=== PATIENT | female | born 1995 | race Caucasian/White ===

== ENCOUNTER 2017-07-02 10:31 | Emergency (ER) | payer OTHER ==
[2017-07-02] MEDS ORDERED: Zofran 4 MG/2 ML VIAL IV ONE (10:54)
[2017-07-02] MEDS ORDERED: Sodium Chloride 0.9% 1000 ML 1,000 ML IV STA (10:54)
[2017-07-02] MEDS ORDERED: Sodium Chloride 0.9% 1000 ML 1,000 ML ONE (10:59)
[2017-07-02] MEDS ORDERED: Zofran 4 MG/2 ML VIAL ONE (10:59)
--- NOTE | 2017-07-02 10:59 | ERPHSYRPT ---
- History of Present Illness Time Seen by Provider: 07/02/17 10:47 Historian: patient Exam Limitations: no limitations Patient Subjective Stated Complaint: Pt states "I have been vomiting for the past couple of nights, but it has gotten really bad since last night. I vomited so hard that now my stomach hurts." Triage Nursing Assessment: Pt alert and oriented X3, skin pwd Pt ambulates with an upright steady gait, able to speak in clear full sentences. Pt playing on her phone in waiting room. No apparent respiratory distress. Physician History: FOR THE PAST 10.5 HOURS PT HAS HAD VOMITING X12 WITHOUT BLOOD, DYSURIA AND A SORE THROAT; DENIES FEVER, RASH, COUGH. LAST BM WAS YESTERDAY & NOT DIARRHEAL. Allergies/Adverse Reactions: No Known Drug Allergies Allergy (Unverified 07/02/17 10:42) Hx Tetanus, Diphtheria Vaccination/Date Given: Yes Hx Influenza Vaccination/Date Given: No Hx Pneumococcal Vaccination/Date Given: No Immunizations Up to Date: Yes - Review of Systems Constitutional: No Fever Ears, Nose, & Throat: Throat Pain Respiratory: No Dyspnea Cardiac: No Chest Pain Abdominal/Gastrointestinal: Vomiting Genitourinary Symptoms: Dysuria All Other Systems: Reviewed and Negative - Past Medical History Pertinent Past Medical History: No - Past Surgical History Past Surgical History: Yes Other Surgical History: lizett - Social History Smoking Status: Former smoker Exposure to second hand smoke: No Drug Use: none Patient Lives Alone: No - Female History Hx Last Menstrual Period: 3 years Hx Now: No - Nursing Vital Signs Nursing Vital Signs: Initial Vital Signs Temperature 98.7 F 07/02/17 10:35 Pulse Rate 90 07/02/17 10:35 Respiratory Rate 16 07/02/17 10:35 Blood Pressure 133/90 07/02/17 10:35 O2 Sat by Pulse Oximetry 99 07/02/17 10:35 Pain Scale Pain Intensity 6 - Physical Exam General Appearance: alert Eye Exam: PERRL/EOMI Ears, Nose, Throat Exam: TMs normal, dry mucous membranes Neck Exam: normal inspection Respiratory Exam: lungs clear Cardiovascular Exam: normal heart sounds Gastrointestinal/Abdomen Exam: soft, other (B.S. MILDLY HYPERACTIVE AND NORMOTONIC) Back Exam: normal range of motion Extremity Exam: normal inspection Neurologic Exam: alert, cooperative Skin Exam: warm, dry SpO2 Interpretation: normal SpO2: 99 Oxygen Delivery: Room Air - Course Nursing assessment & vital signs reviewed: Yes Ordered Tests: Active Orders 24 hr Category Date Time Status IV Insertion STAT Care 07/02/17 10:54 Active AMYLASE Stat Lab 07/02/17 11:10 Completed CBC W DIFF Stat Lab 07/02/17 11:10 Completed CMP Stat Lab 07/02/17 11:10 Completed CULTURE,URINE Stat Lab 07/02/17 11:10 Received HCG QUALITATIVE,SERUM Stat Lab 07/02/17 11:10 Completed LIPASE Stat Lab 07/02/17 11:10 Completed MAGNESIUM Stat Lab 07/02/17 11:10 Completed UA W/ MICROSCOPIC Stat Lab 07/02/17 11:10 Completed Medication Summary Generic Name Dose Route Start Last Admin Trade Name Freq PRN Reason Stop Dose Admin Ceftriaxone Sodium/Dextrose 1 g in 50 mls @ 100 mls/hr 07/02/17 11:58 Rocephin 1 Gm-D5w 50 Ml Bag IV 07/02/17 12:27 STAT STA Discontinued Medications Generic Name Dose Route Start Last Admin Trade Name Freq PRN Reason Stop Dose Admin Sodium Chloride 1,000 mls @ 999 mls/hr 07/02/17 10:54 07/02/17 11:10 Sodium Chloride 0.9% 1000 Ml IV 07/02/17 11:54 999 mls/hr .Q1H1M STA Administration Sodium Chloride Confirm 07/02/17 10:59 Sodium Chloride 0.9% 1000 Ml Administered 07/02/17 11:00 Dose 1,000 mls @ ud .ROUTE .STK-MED ONE Ondansetron HCl 4 mg 07/02/17 10:54 07/02/17 11:10 Zofran 4 Mg/2 Ml Vial IV 07/02/17 10:55 4 mg STAT ONE Administration Ondansetron HCl Confirm 07/02/17 10:59 Zofran 4 Mg/2 Ml Vial Administered 07/02/17 11:00 Dose 4 mg .ROUTE .STK-MED ONE Lab/Rad Data: Laboratory Result Diagrams 07/02/17 11:10 07/02/17 11:10 Laboratory Results 07/02/17 07/02/17 07/02/17 Range/Units 11:10 11:10 11:10 WBC 6.8 (4.0-10.5) K/mm3 RBC 4.53 (4.1-5.4) M/mm3 Hgb 13.6 (12.0-16.0) gm/dl Hct 40.3 (35-47) % MCV 89.0 (78-100) fl MCH 30.0 (26-32) pg MCHC 33.7 (32-36) g/dl RDW 11.7 (11.5-14.0) % Plt Count 263 (150-450) K/mm3 MPV 9.7 H (6-9.5) fl Gran % 61.1 (36.0-66.0) % Eos # (Auto) 0.13 (0-0.5) Absolute Lymphs (auto) 1.98 (1.0-4.6) Absolute Monos (auto) 0.51 (0.0-1.3) Lymphocytes % 29.2 (24.0-44.0) % Monocytes % 7.5 (0.0-12.0) % Eosinophils % 1.9 (0.00-5.0) % Basophils % 0.3 (0.0-0.4) % Absolute Granulocytes 4.15 (1.4-6.9) Basophils # 0.02 (0-0.4) Sodium 142 (137-145) mmol/L Potassium 4.1 (3.5-5.1) mmol/L Chloride 104 (98-107) mmol/L Carbon Dioxide 27 (22-30) mmol/L Anion Gap 14.9 (5-15) MEQ/L BUN 10 (7-17) mg/dL Creatinine 0.71 (0.52-1.04) mg/dL Estimated GFR > 60.0 ML/MIN Glucose 94 (74-106) mg/dL Calcium 9.5 (8.4-10.2) mg/dL Magnesium 2.0 (1.6-2.3) mg/dL Total Bilirubin 0.80 (0.2-1.3) mg/dL AST 19 (14-36) U/L ALT 22 (0-35) U/L Alkaline Phosphatase 71 (38-126) U/L Serum Total Protein 7.7 (6.3-8.2) g/dL Albumin 4.6 (3.5-5.0) g/dL Amylase 91 (30-110) U/L Lipase 97 (23-300) U/L Serum , Qual NEGATIVE (Negative) Ur Collection Type Urine Color (YELLOW) Urine Appearance (CLEAR) Urine pH (5-6) Ur Specific [place] (1.005-1.025) Urine Protein (Negative) Urine Ketones (NEGATIVE) Urine Blood (0-5) [place]/ul Urine Nitrite (NEGATIVE) Urine Bilirubin (NEGATIVE) Urine Urobilinogen (0-1) mg/dL Ur Leukocyte Esterase (NEGATIVE) Urine Microscopic RBC (0-2) /HPF Urine Microscopic WBC (0-5) /HPF Ur Epithelial Cells (FEW) /HPF Urine Bacteria (NEGATIVE) /HPF Urine Culture Reflexed (NO) Urine Glucose (NEGATIVE) mg/dL Specimen Received 07/02/17 Range/Units 11:10 WBC (4.0-10.5) K/mm3 RBC (4.1-5.4) M/mm3 Hgb (12.0-16.0) gm/dl Hct (35-47) % MCV (78-100) fl MCH (26-32) pg MCHC (32-36) g/dl RDW (11.5-14.0) % Plt Count (150-450) K/mm3 MPV (6-9.5) fl Gran % (36.0-66.0) % Eos # (Auto) (0-0.5) Absolute Lymphs (auto) (1.0-4.6) Absolute Monos (auto) (0.0-1.3) Lymphocytes % (24.0-44.0) % Monocytes % (0.0-12.0) % Eosinophils % (0.00-5.0) % Basophils % (0.0-0.4) % Absolute Granulocytes (1.4-6.9) Basophils # (0-0.4) Sodium (137-145) mmol/L Potassium (3.5-5.1) mmol/L Chloride (98-107) mmol/L Carbon Dioxide (22-30) mmol/L Anion Gap (5-15) MEQ/L BUN (7-17) mg/dL Creatinine (0.52-1.04) mg/dL Estimated GFR ML/MIN Glucose (74-106) mg/dL Calcium (8.4-10.2) mg/dL Magnesium (1.6-2.3) mg/dL Total Bilirubin (0.2-1.3) mg/dL AST (14-36) U/L ALT (0-35) U/L Alkaline Phosphatase (38-126) U/L Serum Total Protein (6.3-8.2) g/dL Albumin (3.5-5.0) g/dL Amylase (30-110) U/L Lipase (23-300) U/L Serum , Qual (Negative) Ur Collection Type CCMS Urine Color YELLOW (YELLOW) Urine Appearance CLEAR (CLEAR) Urine pH 5.0 (5-6) Ur Specific [place] 1.020 (1.005-1.025) Urine Protein NEGATIVE (Negative) Urine Ketones NEGATIVE (NEGATIVE) Urine Blood 5-10 (0-5) [place]/ul Urine Nitrite NEGATIVE (NEGATIVE) Urine Bilirubin NEGATIVE (NEGATIVE) Urine Urobilinogen NORMAL (0-1) mg/dL Ur Leukocyte Esterase NEGATIVE (NEGATIVE) Urine Microscopic RBC 0-2 (0-2) /HPF Urine Microscopic WBC 0-2 (0-5) /HPF Ur Epithelial Cells MODERATE (FEW) /HPF Urine Bacteria MODERATE (NEGATIVE) /HPF Urine Culture Reflexed YES (NO) Urine Glucose NEGATIVE (NEGATIVE) mg/dL Specimen Received 1110 07/02/17 - Departure Time of Disposition: 12:03 Departure Disposition: Home Clinical Impression: UTI, VOMITING Condition: Stable Critical Care Time: No Referrals: CHANDRA NUÑEZ MD [Primary Care Provider] - Instructions: Vomiting -- Adult, Urinary Tract Infections in Adults Additional Instructions: FOLLOW UP WITH PRIVATE DOCTOR TOMORROW. Prescriptions: Promethazine HCl 25 mg [Phenergan 25 mg] 25 mg PO Q4H PRN PRN #14 tablet PRN Reason: Nausea/Vomiting Nitrofurantoin Macro 100 mg [Macrobid 100MG Capsule] 100 mg PO BID #20 capsule
[2017-07-02 11:17] LABS: BASOPHIL % 0.3 % (0.0-0.4); Basophil (Absolute #) 0.02 (0-0.4); Eosinophil % 1.9 % (0.00-5.0); Eosinophil (Absolute #) 0.13 (0-0.5); Granulocyte Absolute (ANC) 4.15 (1.4-6.9); Granulocytes % 61.1 % (36.0-66.0); Hematocrit 40.3 % (35-47); Hemoglobin 13.6 gm/dl (12.0-16.0); Lymphocyte (Absolute #) 1.98 (1.0-4.6); Lymphocytes % 29.2 % (24.0-44.0); Mean Corpuscular Hgb Concent. 33.7 g/dl (32-36); Mean Platelet Volume 9.7 fl (6-9.5); Monocyte (Absolute #) 0.51 (0.0-1.3); Monocytes % 7.5 % (0.0-12.0); Platelet Count 263 K/mm3 (150-450); Red Blood Count 4.53 M/mm3 (4.1-5.4); Red Cell Distribution Width 11.7 % (11.5-14.0); White Blood Count 6.8 K/mm3 (4.0-10.5)
[2017-07-02 11:19] LABS: Appearance CLEAR (CLEAR); Bilirubin NEGATIVE (NEGATIVE); Glucose NEGATIVE (NEGATIVE); Ketones NEGATIVE (NEGATIVE); Leukocyte Esterase NEGATIVE (NEGATIVE); Nitrite NEGATIVE (NEGATIVE); Protein,Urine Dip NEGATIVE (Negative); Urobilinogen NORMAL mg/dL (0-1)
[2017-07-02 11:33] LABS: ALBUMIN 4.6 g/dL (3.5-5.0); ALKALINE PHOSPHATASE 71 U/L (38-126); AMYLASE 91 U/L (30-110); ANION GAP 14.9 MEQ/L (5-15); BLOOD UREA NITROGEN 10 mg/dL (7-17); CHLORIDE 104 mmol/L (98-107); Calcium 9.5 mg/dL (8.4-10.2); Carbon Dioxide 27 mmol/L (22-30); Creatinine 1 0.71 mg/dL (0.52-1.04); Glucose 94 mg/dL (74-106); LIPASE 97 U/L (23-300); Potassium 4.1 mmol/L (3.5-5.1); SGOT/AST 19 U/L (14-36); SGPT/ALT 22 U/L (0-35); SODIUM 142 mmol/L (137-145); Total Protein 7.7 g/dL (6.3-8.2)
[2017-07-02 11:36] LABS: Bacteria MODERATE /HPF (NEGATIVE); Epithelial Cells MODERATE /HPF (FEW); WBC 0-2 /HPF (0-5)
[2017-07-02] MEDS ORDERED: ROCEPHIN 1 Gm-D5w 50 ml Bag** 1 G/50 ML IVPB IV STA (11:58)
[2017-07-02] MEDS ORDERED: ROCEPHIN 1 Gm-D5w 50 ml Bag** 1 G/50 ML IVPB IV ONE (12:04)
[2017-07-02 12:19] VITALS: BP 104/47; PULSE 48; O2SAT 100
== END 2017-07-02 12:28 | disposition home or self-care (01) ==
LOC: ED 10:31
DX: N39.0 Urinary tract infection, site not specified (principal); R11.10 Vomiting, unspecified; Z87.891 Personal history of nicotine dependence
CPT/HCPCS: 36000; 36415; 80053; 81000; 82150; 83690; 83735; 84703; 85025; 87086; 96360; 96365; 96374; 99283; 99284; J0696; J2405

== ENCOUNTER 2022-03-17 05:36 | Emergency (ER) | payer BC ==
[2022-03-17] MEDS ORDERED: Zofran 4 MG/2 ML VIAL IV ONE ×2 (06:04→07:18)
[2022-03-17] MEDS ORDERED: Sodium Chloride 0.9% 1000 ML 1,000 ML IV STA ×2 (06:04→09:38)
[2022-03-17] MEDS ORDERED: MORPHINE SULFATE 2 MG INJ IV ONE (06:04)
[2022-03-17] MEDS ORDERED: Zofran 4 MG/2 ML VIAL ONE ×2 (06:10→07:16)
[2022-03-17] MEDS ORDERED: MORPHINE SULFATE 2 MG INJ ONE (06:11)
[2022-03-17] MEDS ORDERED: Sodium Chloride 0.9% 1000 ML 1,000 ML ONE ×2 (06:11→09:40)
[2022-03-17 06:21] LABS: Absolute Neutrophil Ct (ANC) 14.64 x10^3/uL (1.4-6.9); Basophil (Absolute #) 0.02 x10^3/uL (0-0.4); Eosinophil (Absolute #) 0 x10^3/uL (0-0.5); Hematocrit 43.1 % (35-47); Lymphocyte (Absolute #) 0.26 x10^3/uL (1.0-4.6); Lymphocytes % 1.7 % (24.0-44.0); Mean Cell Volume 89.4 fL (78-100); Mean Corpuscular Hgb Concent. 32.5 g/dL (32-36); Mean Platelet Volume 10.4 fL (7.5-11.0); Monocyte (Absolute #) 0.32 x10^3/uL (0.0-1.3); Monocytes % 2.1 % (0.0-12.0); Neutrophil % 95.8 % (36.0-66.0); Platelet Count 304 x10^3/uL (150-450); Red Blood Count 4.82 x10^6/uL (4.1-5.4); Red Cell Distribution Width 11.4 % (11.5-14.0); White Blood Count 15.3 x10^3/uL (4.0-10.5)
[2022-03-17 06:41] LABS: Slide Review 1 YES
[2022-03-17 06:42] LABS: ALKALINE PHOSPHATASE 86 U/L (38-126); ANION GAP 15.2 MEQ/L (5-15); BLOOD UREA NITROGEN 15 mg/dL (7-17); CHLORIDE 103 mmol/L (98-107); Calcium 9.3 mg/dL (8.4-10.2); Carbon Dioxide 25 mmol/L (22-30); Creatinine 1 0.71 mg/dL (0.52-1.04); EST GLOMERULAR FILTRATION RATE > 60.0 ML/MIN; Glucose 141 mg/dL (74-106); LIPASE 56 U/L (23-300); Potassium 3.5 mmol/L (3.5-5.1); SGOT/AST 24 U/L (14-36); SGPT/ALT 26 U/L (0-35); SODIUM 140 mmol/L (137-145); Total Protein 8.6 g/dL (6.3-8.2)
--- NOTE | 2022-03-17 06:57 | ERPHSYRPT ---
- History of Present Illness Time Seen by Provider: 03/17/22 06:54 Exam Limitations: no limitations Patient Subjective Stated Complaint: pt states "I have been throwing up since 9:30 last night. I had diarrhea before that." Triage Nursing Assessment: pt ambulated into the er; pt is axo x4; c/o N/V/D; pt states 6/10 pain to BLE and back; mucus membranes pink and moist; emesis present; abd is soft, tender; hypoactive bowel in all quads; tenderness present to RLQ; skin is pale, warm; hypertensive; tachycardic Physician History: Patient 26-year-old female presents emergency department for evaluation of abdominal pain nausea and vomiting. Patient states she has been experiencing nausea and vomiting since 930 yesterday night. Symptoms have been progressive. Pain described as an ache at the right lower quadrant. Patient states prior to the onset of the vomiting she had a bout of diarrhea. No fever. No rash. No vaginal discharge. patient has no urinary complaints. Symptoms are constant. Symptoms are moderate in intensity. No specific worsening or improving factors. Patient has had similar symptoms in the past. Significant other at bedside. They voiced no other complaints or concerns at this time. Portions of this note were created with voice recognition technology. There may be grammatical, spelling, punctuation or sound alike errors Timing/Duration: yesterday Activities at Onset: none Quality: aching Abdominal Pain Onset Location: RLQ Pain Radiation: no radiation Severity of Pain-Max: moderate Severity of Pain-Current: mild Modifying Factors: Improves With: nothing Associated Symptoms: denies symptoms Previous symptoms: same symptoms as today Allergies/Adverse Reactions: No Known Drug Allergies Allergy (Unverified 07/02/17 10:42) Home Medications: No Reportable Medications [No Reported Medications] 03/17/22 [History] Hx Tetanus, Diphtheria Vaccination/Date Given: Yes Hx Influenza Vaccination/Date Given: Yes Hx Pneumococcal Vaccination/Date Given: No Travel Risk - International Travel Have you traveled outside of the country in past 3 weeks: No - Coronavirus Screening Symptoms: Vomiting/Diarrhea Close contact with a COVID-19 positive Pt in past 14-21 Days: No - Vaccine Status Have you recieved a Covid-19 vaccination: Yes 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: [employer] - Vaccination Dates Date of 2cond Vaccination (if applicable): 08/14 - Review of Systems Constitutional: No Symptoms, No Fever, No Chills Eyes: No Symptoms Ears, Nose, & Throat: No Symptoms Respiratory: No Symptoms, No Cough, No Dyspnea Cardiac: No Symptoms, No Chest Pain, No Edema, No Syncope Abdominal/Gastrointestinal: No Symptoms, No Abdominal Pain, No Nausea, No Vo miting, No Diarrhea Genitourinary Symptoms: No Symptoms, No Dysuria Musculoskeletal: No Symptoms, No Back Pain, No Neck Pain Skin: No Symptoms, No Rash Neurological: No Symptoms, No Dizziness, No Focal Weakness, No Sensory Changes Psychological: No Symptoms Endocrine: No Symptoms Hematologic/Lymphatic: No Symptoms Immunological/Allergic: No Symptoms All Other Systems: Reviewed and Negative - Past Medical History Pertinent Past Medical History: No - Past Surgical History Past Surgical History: Yes Neuro Surgical History: No Pertinent History Cardiac: No Pertinent History Respiratory: No Pertinent History Gastrointestinal: No Pertinent History, Cholecystectomy Genitourinary: No Pertinent History Musculoskeletal: No Pertinent History Female Surgical History: No Pertinent History Other Surgical History: lizett - Social History Smoking Status: Former smoker Exposure to second hand smoke: No Drug Use: none Patient Lives Alone: No - Female History Hx Now: No - Nursing Vital Signs Nursing Vital Signs: Initial Vital Signs Temperature 97 F 03/17/22 05:44 Pulse Rate 97 H 03/17/22 05:44 Respiratory Rate 14 03/17/22 05:44 Blood Pressure 144/79 03/17/22 05:44 O2 Sat by Pulse Oximetry 98 03/17/22 05:44 Pain Scale Pain Intensity 4 - Physical Exam General Appearance: no apparent distress, alert Eye Exam: PERRL/EOMI, eyes nml inspection Ears, Nose, Throat Exam: normal ENT inspection, pharynx normal, moist mucous membranes Neck Exam: normal inspection, non-tender, supple, full range of motion Respiratory Exam: normal breath sounds, lungs clear, airway intact, No respiratory distress Cardiovascular Exam: regular rate/rhythm, normal heart sounds, normal peripheral pulses Gastrointestinal/Abdomen Exam: soft, tenderness (Tenderness palpation right lower quadrant. Overlying soft tissue intact.), No mass Back Exam: normal inspection, normal range of motion, No CVA tenderness, No vertebral tenderness Extremity Exam: normal inspection, normal range of motion, pelvis stable Neurologic Exam: alert, oriented x 3, cooperative, normal mood/affect, nml cerebellar function, sensation nml, No motor deficits Skin Exam: normal color, warm, dry SpO2 Interpretation: normal SpO2: 97 O2 Delivery: Room Air - Course Nursing assessment & vital signs reviewed: Yes Ordered Tests: Active Orders 24 hr Category Date Time Status IV Insertion STAT Care 03/17/22 06:04 Active ABDOMEN AND PELVIS W/0 CONTRAS [CT] Stat Exams 03/17/22 06:05 Ordered CBC W DIFF Stat Lab 03/17/22 05:51 Completed CMP Stat Lab 03/17/22 05:51 Completed HCG QUALITATIVE,SERUM Stat Lab 03/17/22 05:51 Completed LIPASE Stat Lab 03/17/22 05:51 Completed TROPONIN Q4H Lab 03/17/22 05:51 Received TROPONIN Q4H Lab 03/17/22 10:15 Ordered TROPONIN Q4H Lab 03/17/22 14:15 Ordered UA W/RFX CULTURE Stat Lab 03/17/22 Ordered Medication Summary Generic Name Dose Route Start Last Admin Trade Name Freq PRN Reason Stop Dose Admin Sodium Chloride 1,000 mls @ 999 mls/hr 03/17/22 06:04 03/17/22 06:12 Sodium Chloride 0.9% 1000 Ml IV 03/17/22 07:04 999 mls/hr .Q1H1M STA Administration Discontinued Medications Generic Name Dose Route Start Last Admin Trade Name Freq PRN Reason Stop Dose Admin Sodium Chloride Confirm 03/17/22 06:11 Sodium Chloride 0.9% 1000 Ml Administered 03/17/22 06:12 Dose 1,000 mls @ ud .ROUTE .STK-MED ONE Morphine Sulfate 2 mg 03/17/22 06:04 03/17/22 06:12 Morphine Sulfate 2 Mg/Ml Inj IV 03/17/22 06:05 2 mg STAT ONE Administration Morphine Sulfate Confirm 03/17/22 06:11 Morphine Sulfate 2 Mg/Ml Inj Administered 03/17/22 06:12 Dose 2 mg .ROUTE .STK-MED ONE Ondansetron HCl 4 mg 03/17/22 06:04 03/17/22 06:11 Ondansetron Hcl 4 Mg/2 Ml Vial IV 03/17/22 06:05 4 mg STAT ONE Administration Ondansetron HCl Confirm 03/17/22 06:10 Ondansetron Hcl 4 Mg/2 Ml Vial Administered 03/17/22 06:11 Dose 4 mg .ROUTE .STK-MED ONE Lab/Rad Data: Laboratory Result Diagrams 03/17/22 05:51 03/17/22 05:51 Laboratory Results 03/17/22 03/17/22 03/17/22 Range/Units 05:51 05:51 05:51 WBC (4.0-10.5) x10^3/uL RBC (4.1-5.4) x10^6/uL Hgb (12.0-16.0) g/dL Hct (35-47) % MCV (78-100) fL MCH (26-32) pg MCHC (32-36) g/dL RDW (11.5-14.0) % Plt Count (150-450) x10^3/uL MPV (7.5-11.0) fL Gran % (36.0-66.0) % Immature Gran % (Auto) (0.00-0.4) % Nucleat RBC Rel Count (0.00-0.1) % Eos # (Auto) (0-0.5) x10^3/uL Immature Gran # (Auto) (0.00-0.03) x10^3u/L Absolute Lymphs (auto) (1.0-4.6) x10^3/uL Absolute Monos (auto) (0.0-1.3) x10^3/uL Absolute Nucleated RBC (0.00-0.01) x10^3u/L Lymphocytes % (24.0-44.0) % Monocytes % (0.0-12.0) % Eosinophils % (0.00-5.0) % Basophils % (0.0-0.4) % Absolute Granulocytes (1.4-6.9) x10^3/uL Basophils # (0-0.4) x10^3/uL Sodium 140 (137-145) mmol/L Potassium 3.5 (3.5-5.1) mmol/L Chloride 103 (98-107) mmol/L Carbon Dioxide 25 (22-30) mmol/L Anion Gap 15.2 H (5-15) MEQ/L BUN 15 (7-17) mg/dL Creatinine 0.71 (0.52-1.04) mg/dL Estimated GFR > 60.0 ML/MIN Glucose 141 H (74-106) mg/dL Calcium 9.3 (8.4-10.2) mg/dL Total Bilirubin 1.20 (0.2-1.3) mg/dL AST 24 (14-36) U/L ALT 26 (0-35) U/L Alkaline Phosphatase 86 (38-126) U/L Troponin I < 0.012 (0.000-0.034) ng/mL Serum Total Protein 8.6 H (6.3-8.2) g/dL Albumin 5.0 (3.5-5.0) g/dL Lipase 56 (23-300) U/L Serum , Qual NEGATIVE (Negative) Slides for Path Review 03/17/22 Range/Units 05:51 WBC 15.3 H (4.0-10.5) x10^3/uL RBC 4.82 (4.1-5.4) x10^6/uL Hgb 14.0 (12.0-16.0) g/dL Hct 43.1 (35-47) % MCV 89.4 (78-100) fL MCH 29.0 (26-32) pg MCHC 32.5 (32-36) g/dL RDW 11.4 L (11.5-14.0) % Plt Count 304 (150-450) x10^3/uL MPV 10.4 (7.5-11.0) fL Gran % 95.8 H (36.0-66.0) % Immature Gran % (Auto) 0.3 (0.00-0.4) % Nucleat RBC Rel Count 0.0 (0.00-0.1) % Eos # (Auto) 0 (0-0.5) x10^3/uL Immature Gran # (Auto) 0.05 H (0.00-0.03) x10^3u/L Absolute Lymphs (auto) 0.26 L (1.0-4.6) x10^3/uL Absolute Monos (auto) 0.32 (0.0-1.3) x10^3/uL Absolute Nucleated RBC 0.00 (0.00-0.01) x10^3u/L Lymphocytes % 1.7 L (24.0-44.0) % Monocytes % 2.1 (0.0-12.0) % Eosinophils % 0.0 (0.00-5.0) % Basophils % 0.1 (0.0-0.4) % Absolute Granulocytes 14.64 H (1.4-6.9) x10^3/uL Basophils # 0.02 (0-0.4) x10^3/uL Sodium (137-145) mmol/L Potassium (3.5-5.1) mmol/L Chloride (98-107) mmol/L Carbon Dioxide (22-30) mmol/L Anion Gap (5-15) MEQ/L BUN (7-17) mg/dL Creatinine (0.52-1.04) mg/dL Estimated GFR ML/MIN Glucose (74-106) mg/dL Calcium (8.4-10.2) mg/dL Total Bilirubin (0.2-1.3) mg/dL AST (14-36) U/L ALT (0-35) U/L Alkaline Phosphatase (38-126) U/L Troponin I (0.000-0.034) ng/mL Serum Total Protein (6.3-8.2) g/dL Albumin (3.5-5.0) g/dL Lipase (23-300) U/L Serum , Qual (Negative) Slides for Path Review YES - Progress Progress: improved Progress Note: Patient endorsed to Dr. Humphreys for final disposition. CT scan report pending. 03/17/22 06:59 Counseled pt/family regarding: lab results, diagnosis, rad results - Departure Clinical Impression: Abdominal pain, Nausea and vomiting, Leukocytosis Condition: Stable Critical Care Time: No Referrals: DOCTOR,NO FAMILY [Primary Care Provider] - Follow up/PCP as directed WILL ZAVALETA MD [ACTIVE STAFF] - Follow up/PCP as directed
[2022-03-17 08:12] VITALS: O2SAT 100
[2022-03-17 08:14] LABS: Appearance CLEAR (CLEAR); Bilirubin SMALL (NEGATIVE); Dipstick done @ ? MAIN LAB; Glucose NEGATIVE (NEGATIVE); Ketones LARGE-80 (NEGATIVE); Nitrite NEGATIVE (NEGATIVE); Ph 5.5 (5-6); Protein,Urine Dip TRACE (Negative); RBC TRACE-LYSED Ery/ul (0-5); Specific Gravity >=1.030 (1.005-1.025); Urobilinogen 0.2 mg/dL (0-1)
[2022-03-17 08:15] LABS: Bacteria RARE /HPF (NEGATIVE); Epithelial Cells RARE /HPF (FEW); Mucus MANY /HPF (NEGATIVE); RBC 0-2 /HPF (0-2); Urine Cultured Indicated? YES; WBC 0-2 /HPF (0-5)
--- NOTE | 2022-03-17 08:58 | XRAY ---
Indication: Abdomen pain, nausea, and vomiting.. Multiple contiguous axial images obtained through the abdomen and pelvis without contrast. Comparison: None Lung bases clear. Heart not enlarged. Noncontrasted stomach and bowel loops appear nonobstructed with normal appendix. Previous cholecystotomy. No free fluid/air. Remaining liver, pancreas, spleen, adrenal glands, kidneys, ureters, bladder, uterus, and aorta are unremarkable for noncontrast exam. Osseous structures intact with minimal double curvature scoliosis. No ventral or inguinal hernias. Impression: CT abdomen/pelvis without contrast exam is negative. Comment: Preliminary interpretation made by [facility]. No critical discrepancy.
[2022-03-17] MEDS ORDERED: PHENERGAN 25 MG PO ONE (09:14)
[2022-03-17] MEDS ORDERED: PHENERGAN 25 MG ONE (09:16)
[2022-03-17] MEDS ORDERED: Phenergan 25 MG INJ*** 25 MG in Sodium Chloride 0.9% 100 ML IV ONE (09:38)
[2022-03-17 11:16] VITALS: BP 118/72; PULSE 88
== END 2022-03-17 11:16 | disposition home or self-care (01) ==
LOC: ED 05:36
DX: R11.2 Nausea with vomiting, unspecified (principal); R10.31 Right lower quadrant pain; D72.829 Elevated white blood cell count, unspecified
CPT/HCPCS: 36000; 36415; 74176; 80053; 81015; 83690; 84484; 84703; 85025; 87086; 96360; 96361; 96368; 96374; 96375; 96376; 99284; J2270; J2405; J2550; A9270-GY